=== PATIENT | female | born 1975 | race Caucasian/White ===

== ENCOUNTER 2017-05-24 13:07 | Outpatient (CLI) | payer OTHER | END 2017-05-24 15:05 | disposition home or self-care (01) | LOC: MAMO-SONO 13:07 | DX: E03.8 Other specified hypothyroidism (principal); N60.11 Diffuse cystic mastopathy of right breast; N60.12 Diffuse cystic mastopathy of left breast; Z12.31 Encounter for screening mammogram for malignant neoplasm of breast ==

== ENCOUNTER 2019-08-20 08:47 | Outpatient (CLI) | payer OTHER | END 2019-08-20 08:58 | disposition home or self-care (01) | LOC: MAMO-SONO 08:47 | PROVIDERS: ATTEND Internal Medicine | DX: Z12.31 Encounter for screening mammogram for malignant neoplasm of breast (principal); N60.11 Diffuse cystic mastopathy of right breast; N60.12 Diffuse cystic mastopathy of left breast; R10.84 Generalized abdominal pain; K76.0 Fatty (change of) liver, not elsewhere classified ==

== ENCOUNTER 2021-06-11 13:18 | Outpatient (CLI) | payer OTHER | END 2021-06-11 13:21 | disposition home or self-care (01) | LOC: MAMO-SONO 13:18 | DX: N60.11 Diffuse cystic mastopathy of right breast (principal); N60.12 Diffuse cystic mastopathy of left breast ==